=== PATIENT | female | born 1995 | race Hispanic/Latino ===

== ENCOUNTER 2021-09-27 20:37 | Emergency (ER) | payer BC ==
[~2021-09-27] VITALS: Ht 172.7 cm; Wt 61.2 kg
== END 2021-09-27 22:35 | disposition home or self-care (01) ==
LOC: ER 21:37
DX: T19.2XXA Foreign body in vulva and vagina, initial encounter (principal); N92.5 Other specified irregular menstruation
CPT/HCPCS: 99283